=== PATIENT | female | born 1995 | race Caucasian/White ===

== ENCOUNTER 2017-08-16 18:43 | Emergency (ER) | payer OTHER ==
[~2017-08-16] VITALS: Ht 165.1 cm; Wt 56.3 kg
[2017-08-16 18:45] VITALS: Ht 165.1 cm; Wt 56.3 kg
--- NOTE | 2017-08-16 18:53 | EMERGENCY ROOM VISIT NOTE ---
History Report prepared by Emerson: Bonnie Ferreira Under the Supervision of: Dr. Fredo Rod M.D. First contact with patient: 18:48 Chief Complaint: NEURO SYMPTOMS Stated Complaint: LOSS OF VISION, NAUSEA, HEADACHE, LOSS OF BALANCE History of Present Illness The patient is a 22 year old female who presents to the Emergency Room with complaints of neurological symptoms beginning 1 hour prior to arrival. The patient reports that she suddenly had changes in her vision and states that words would disappear when she would try to read something, but that she was still able to see the paper. The patient reports that she completely lost her peripheral vision. She reports that this has never happened to her before. The patient states that she does have contact lenses, but states that she was wearing her glasses when the changes in vision started. She also reports having a headache and nausea, but denies having fevers, chills, or diarrhea. The patient reports occasional alcohol use and states that she drank a lot last night. She reports that she has not been eating well lately due to recent stress with her boyfriend. The patient does report that she was texting her parents about her boyfriend when her symptoms began. She denies a history of migraines or any active medical problems. The patient reports that she went to [facility] her freshman year and was prescribed anxiety medication but states that she did not take it and reports that she no longer experiences such anxiety. The patient states that she is otherwise healthy. The patient states that her last menstrual period was 1 week ago. Source of History: patient Onset: 1 hour prior to arrival Position: other (global) Quality: other (neurological symptoms ) Associated Symptoms: + headache, + nausea, No fevers, No chills, No diarrhea Review of Systems See HPI for pertinent positives and negatives. A total of ten systems were reviewed and were otherwise negative. Past Medical & Surgical Medical Problems: (1) No active medical problems Family History No pertinent family history Social History Smoking Status: Never Smoker Marital Status: single Housing Status: lives with roommate Occupation Status: [employer] acquired by [employer] Current/Historical Medications Scheduled Control Pills ( Control Pills), 1 TAB PO DAILY Allergies Coded Allergies: No Known Allergies (Unverified , 08/16/17) Physical Exam Vital Signs Date Time Temp Pulse Resp B/P (MAP) Pulse Ox O2 Delivery O2 Flow Rate FiO2 08/16/17 21:38 69 18 112/82 100 08/16/17 20:47 65 08/16/17 20:45 73 18 103/76 100 Room Air 08/16/17 18:45 36.4 73 16 144/95 100 Room Air Physical Exam GENERAL: Awake, alert, tearful and anxious appearing, in no distress HENT: Normocephalic, atraumatic. Oropharynx with dry mucous membranes, otherwise unremarkable. EYES: Normal conjunctiva. Sclera non-icteric. NECK: Supple. No nuchal rigidity. FROM. No JVD. RESPIRATORY: Clear to auscultation. CARDIAC: Regular rate, normal rhythm. Extremities warm and well perfused. Pulses equal. ABDOMEN: Soft, non-distended. No tenderness to palpation. No rebound or guarding. No masses. RECTAL: Deferred. MUSCULOSKELETAL: Chest examination reveals no tenderness. The back is symmetrical on inspection without obvious abnormality. There is no CVA tenderness to palpation. No joint edema. LOWER EXTREMITIES: Calves are equal size bilaterally and non-tender. No edema. No discoloration. NEURO: Normal sensorium. No sensory or motor deficits noted. Normal cerebellar function with [id number], alternating palms, [id number] SKIN: No rash or jaundice noted. Medical Decision & Procedures ER Provider Diagnostic Interpretation: Ultrasound of Eyes: No gross retinal or vitreous detachment or hemorrhage. Laboratory Results 08/16/17 19:20 Red Blood Count 4.42, Mean Corpuscular Volume 86.7, Mean Corpuscular Hemoglobin 29.9, Mean Corpuscular Hemoglobin Concent 34.5, Mean Platelet Volume 9.8, Neutrophils (%) (Auto) 64.7, Lymphocytes (%) (Auto) 27.8, Monocytes (%) (Auto) 6.7, Eosinophils (%) (Auto) 0.4, Basophils (%) (Auto) 0.3, Neutrophils # (Auto) 4.66, Lymphocytes # (Auto) 2.00, Monocytes # (Auto) 0.48, Eosinophils # (Auto) 0.03, Basophils # (Auto) 0.02 08/16/17 19:20 Test 08/16/17 19:20 08/16/17 19:40 White Blood Count 7.20 K/uL (4.8-10.8) Red Blood Count 4.42 M/uL (4.2-5.4) Hemoglobin 13.2 g/dL (12.0-16.0) Hematocrit 38.3 % (37-47) Mean Corpuscular Volume 86.7 fL (80-100) Mean Corpuscular Hemoglobin 29.9 pg (25-34) Mean Corpuscular Hemoglobin Concent 34.5 g/dl (32-36) Platelet Count 257 K/uL (130-400) Mean Platelet Volume 9.8 fL (7.4-10.4) Neutrophils (%) (Auto) 64.7 % Lymphocytes (%) (Auto) 27.8 % Monocytes (%) (Auto) 6.7 % Eosinophils (%) (Auto) 0.4 % Basophils (%) (Auto) 0.3 % Neutrophils # (Auto) 4.66 K/uL (1.4-6.5) Lymphocytes # (Auto) 2.00 K/uL (1.2-3.4) Monocytes # (Auto) 0.48 K/uL (0.11-0.59) Eosinophils # (Auto) 0.03 K/uL (0-0.5) Basophils # (Auto) 0.02 K/uL (0-0.2) RDW Standard Deviation 39.6 fL (36.4-46.3) RDW Coefficient of Variation 12.3 % (11.5-14.5) Immature Granulocyte % (Auto) 0.1 % Immature Granulocyte # (Auto) 0.01 K/uL (0.00-0.02) Anion Gap 8.0 mmol/L (3-11) Est Creatinine Clear Calc Drug Dose 93.4 ml/min Estimated GFR () 114.3 Estimated GFR (Non- 98.7 BUN/Creatinine Ratio 13.2 (10-20) Calcium Level 9.3 mg/dl (8.5-10.1) Magnesium Level 2.0 mg/dl (1.8-2.4) Total Bilirubin 0.5 mg/dl (0.2-1) Direct Bilirubin 0.1 mg/dl (0-0.2) Aspartate Amino Transf (AST/SGOT) 13 U/L (15-37) Alanine Aminotransferase (ALT/SGPT) 23 U/L (12-78) Alkaline Phosphatase 53 U/L (45-117) Total Protein 8.0 gm/dl (6.4-8.2) Albumin 4.2 gm/dl (3.4-5.0) Lipase 158 U/L (73-393) Urine Color YELLOW Urine Appearance CLEAR (CLEAR) Urine pH 7.0 (4.5-7.5) Urine Specific [place] 1.006 (1.000-1.030) Urine Protein NEG (NEG) Urine Glucose (UA) NEG (NEG) Urine Ketones NEG (NEG) Urine Occult Blood NEG (NEG) Urine Nitrite NEG (NEG) Urine Bilirubin NEG (NEG) Urine Urobilinogen NEG (NEG) Urine Leukocyte Esterase NEG (NEG) Urine Test NEG (NEG) Laboratory results reviewed by me Medications Administered Medications (Trade) Dose Ordered Sig/Burak Route Start Time Stop Time Status Last Admin Dose Admin Sodium Chloride 2,000 ml @ 999 mls/hr Q2H1M STAT IV 08/16/17 19:10 08/16/17 21:10 DC 08/16/17 19:30 999 MLS/HR Metoclopramide HCl (Reglan Inj) 10 mg NOW STAT IV 08/16/17 19:10 08/16/17 19:13 DC 08/16/17 19:30 10 MG Diphenhydramine HCl (Benadryl Inj) 25 mg NOW STAT IV 08/16/17 19:10 08/16/17 19:13 DC 08/16/17 19:30 25 MG Potassium Chloride (Klor-Con M10) 40 meq NOW STAT PO 08/16/17 20:27 08/16/17 20:28 DC 08/16/17 20:46 40 MEQ ECG Per My Interpretation Indication: other (neurological symptoms ) Rate (beats per minute): 75 Rhythm: sinus with SA Findings: no acute ischemic change, other (normal axis ) ED Course 1899: The patient was evaluated in room B7. A complete history and physical exam was performed. 2099: I checked on the patient. 2139: I reevaluated the patient. Discussed results and discharge instructions: She verbalized understanding and agreement. The patient is ready for discharge. Medical Decision I reviewed the patient's past medical history, medications, and the nursing notes as described above. Differential diagnoses: Intracranial hemorrhage, intracranial mass, migraine headache, tension headache , sinusitis, meningitis The patient is a 22-year-old woman who presents emergency department with headache and changes in vision that occurred shortly prior to arrival per hpi. Of note, the patient reports that symptoms occurred approximately an hour prior to arrival but resolved by the time she got here. She also reports that the symptoms occur in the setting of recently discovering unfortunate news that her boyfriend was cheating on her. At the time that the symptoms occurred she was texting with her parents regarding this situation. On exam patient is neuro intact including normal cerebellar function with [id number], alternating palms, [id number]. Labs unremarkable. Sx most likely related to stressful event / possible associated migraine. Bedside ocular ultrasound negative for any gross retinal detachment or vitreous detachment or hemorrhage. Patient's acuity is 20/40.20/50 however she denies any recent updates to her glasses prescription. IOP is performed and were 23.5 and 24. Of note, the patient denies any ocular pain and when symptoms occurred there is no setting changes to lighting in the room, thus unlikely to be glaucoma in this young healthy patient. I did discuss the case with ophthalmology, Dr. Navarro, who agrees that the symptoms are most likely related to the patient's acute distressful situation. Agrees that the patient can follow-up outpatient for non-urgent appointment within the next week. Patient with resolution of sx after migraine cocktail and IVF hydration. Findings and plan for follow-up reviewed with patient. Patient agreeable and d/c'd per discharge instructions. Medication Reconcilliation Current Medication List: was personally reviewed by me Blood Pressure Screening Patient's blood pressure: Elevated blood pressure Blood pressure disposition: Elevated BP felt to be situational Consults Time Called: 2134 Consulting Physician: Dr. Navarro-Opthamology Returned Call: [phone] I discussed the patient with Dr. Navarro who said that the patient can follow-up non-urgently. Impression Primary Impression: Migraine Additional Impression: Anxiety Scribe Attestation The scribe's documentation has been prepared under my direction and personally reviewed by me in its entirety. I confirm that the note above accurately reflects all work, treatment, procedures, and medical decision making performed by me. Departure Information Dispostion Home / Self-Care Referrals No Doctor, Assigned (PCP) Akash Navarro MD Forms HOME CARE DOCUMENTATION FORM, IMPORTANT VISIT INFORMATION, WORK / SCHOOL INSTRUCTIONS Patient Instructions Anxiety Body Response, ED Headache Migraine, My [facility] Additional Instructions Please follow up with [facility] and ophthalmology, Dr. Navarro, in the next 1-3 days for re-evaluation. Your symptoms are most likely related to migraine RAZO that likely was provoked by anxiety due to a stressful situation. Otherwise, your exam and lab results did not show signs of an emergent condition at this time. Avoid alcohol use for the next week. Drink plenty of fluids to ensure hydration. Return to the emergency department for worsening symptoms as described in the accompanying instructions. Problem Qualifiers
[2017-08-16] MEDS ORDERED: METOCLOPRAMIDE HCL INJ 5 MG/ML 2 ML VIAL IV STA (19:10)
[2017-08-16] MEDS ORDERED: SODIUM CHLORIDE 0.9% 1000ML 2,000 ML IV STA (19:10)
[2017-08-16] MEDS ORDERED: DiphenhydrAMINE HCL 50 MG/ML VIAL IV STA (19:10)
[2017-08-16] MEDS ORDERED: BCPILLS PO (19:34)
[2017-08-16 19:53] LABS: BASO % 0.3 %; BASO ABS # 0.02 K/uL (0-0.2); EOS % 0.4 %; EOS ABS # 0.03 K/uL (0-0.5); HEMATOCRIT 38.3 % (37-47); HEMOGLOBIN 13.2 g/dL (12.0-16.0); IG# 0.01 K/uL (0.00-0.02); LYMPH % 27.8 %; MEAN CELL VOLUME 86.7 fL (80-100); MEAN CORPUSCULAR HEMOGLOBIN 29.9 pg (25-34); MEAN CORPUSCULAR HGB CONC 34.5 g/dl (32-36); MEAN PLATELET VOLUME 9.8 fL (7.4-10.4); MONO % 6.7 %; MONO ABS # 0.48 K/uL (0.11-0.59); NEUT % 64.7 %; NEUT ABS # 4.66 K/uL (1.4-6.5); PLATELET COUNT 257 K/uL (130-400); RED CELL DISTRIBUTION WIDTH CV 12.3 % (11.5-14.5); RED CELL DISTRIBUTION WIDTH SD 39.6 fL (36.4-46.3)
[2017-08-16 20:01] LABS: ALBUMIN 4.2 gm/dl (3.4-5.0); CALCIUM 9.3 mg/dl (8.5-10.1); CREATININE 0.84 mg/dl (0.60-1.20); POTASSIUM 3.1 mmol/L (3.5-5.1)
[2017-08-16] MEDS ORDERED: POTASSIUM CHLORIDE 10 MEQ TABCR PO STA (20:27)
[2017-08-16 21:38] VITALS: BP 112/82; PULSE 69; O2SAT 100
== END 2017-08-16 21:39 | disposition home or self-care (01) ==
LOC: C.EDB 18:45
DX: G43.909 Migraine, unspecified, not intractable, without status migrainosus (principal); F41.9 Anxiety disorder, unspecified